=== PATIENT | female | born 1945 | race African-American/Black ===

== ENCOUNTER 2022-07-22 11:27 | Inpatient (IN) | payer MEDICARE, OTHER ==
[~2022-07-22] VITALS: Ht 162.6 cm; Wt 113.9 kg
[2022-07-22] MEDS ORDERED: IPRATROPIUM BROMIDE (0.02%) 0.5MG/2.5ML NEB HHN STA (11:38)
[2022-07-22] MEDS ORDERED: METHYLPREDNISOLONE SOD SUCC 125 MG/2 ML VIAL IV STA (11:38)
[2022-07-22] MEDS ORDERED: MAGNESIUM 2 G PREMIX 50 ML IV ONE (11:45)
[2022-07-22] MEDS: ALBUTEROL (0.083%) 2.5MG/3ML NEB HHN SCH ×3 (12:00→13:00)
[2022-07-22 12:39] LABS: BASOPHILS % 0.4 % (0.0-2.0); HEMATOCRIT. 46.8 % (36.0-48.0); HEMOGLOBIN. 15.4 g/dL (12.0-16.0); LYMPHOCYTES % 46.8 % (20.0-50.0); MEAN CORPUSCULAR VOLUME 94.1 fL (81.0-99.0); MEAN PLATELET VOLUME 9.1 fl (7.4-10.4); MONOCYTES % 7.3 % (2.0-8.0); NEUTROPHILS % 45.5 % (40.0-76.0); PLATELET 316 x1000/uL (130-400); RED BLOOD CELL COUNT 4.97 mill/uL (4.2-5.4); RED CELL DISTRIBUTION WIDTH 16.1 % (11.6-14.6)
[2022-07-22 12:48] LABS: INR 1.1; PROTHROMBIN TIME 11.9 sec (9.6-11.0)
[2022-07-22 12:50] LABS: CHLORIDE 97 mEq/L (98-107)
[2022-07-22] MEDS ORDERED: METHYLPREDNISOLONE SOD SUCC 125 MG/2 ML VIAL IV NR (13:15)
[2022-07-22] MEDS ORDERED: LEVOFLOXACIN 750MG PREMIX 150 ML IV NR (13:15)
[2022-07-22 14:39] LABS: BG BASE EXCESS 5.1 mmol/L (-2.0-2.0); BG CARBOXYHEMOGLOBIN 0.9 % (0.5-1.5); BG DEOXYHEMOGLOBIN 0.6 % (0.0-5.0); BG FRACTION INSPIRED OXYGEN 100; BG METHEMOGLOBIN 1.1 % (0.0-1.5); BG OXYGEN SATURATION 99.4 % (92.0-98.5); BG OXYHEMOGLOBIN 97.4 % (94.0-97.0); BG PCO2 123.9 mmHg (35.0-45.0); BG PH 7.127 (7.350-7.450); BG PO2 409.1 mmHg (75.0-100.0); BG SAMPLE SITE RIGHT RADIAL; BG TOTAL HEMOGLOBIN 16.6 g/dL (12.0-18.0); BG VENT MODE MASK - NRB
[2022-07-22] MEDS ORDERED: PROPOFOL 10MG/ML 100ML 100 ML IV ONE (15:00)
[2022-07-22] MEDS ORDERED: ACETAMINOPHEN 325MG TABLET PO PRN (15:15)
[2022-07-22] MEDS ORDERED: ONDANSETRON HCL 4MG/2ML INJ IV PRN (15:15)
[2022-07-22] MEDS ORDERED: NOREPINEPHRINE 8MG/250ML PMX 250 ML IV STA (15:36)
[2022-07-22] MEDS ORDERED: MIDAZOLAM HCL 100 MG in DEXT 5% WATER 80 ML IV ONE (15:45)
[2022-07-22] MEDS ORDERED: NOREPINEPHRINE 8 MG in DEXTROSE 5% WATER 250 ML IV SCH (16:00)
[2022-07-22] MEDS ORDERED: NOREPINEPHRINE 8MG/250ML PMX 250 ML IV SCH (16:00)
[2022-07-22 16:10] LABS: CLARITY URINE CLEAR (CLEAR); COLOR URINE DARK YELLOW (YELLOW); KETONES URINE TRACE (NEGATIVE); LEUKOCYTE ESTERASE URINE NEGATIVE (NEGATIVE); NITRITE URINE NEGATIVE (NEGATIVE); OCCULT BLOOD URINE 1+ (NEGATIVE); PH URINE 5.5 (4.5-8.0); PROTEIN URINE 3+ (NEGATIVE); SPECIFIC GRAVITY URINE 1.027 (1.005-1.030)
[2022-07-22 16:49] LABS: BG BASE EXCESS 0.8 mmol/L (-2.0-2.0); BG DEOXYHEMOGLOBIN 0.3 % (0.0-5.0); BG FRACTION INSPIRED OXYGEN 100; BG HCO3 ACT 31.8 mmol/L (22.0-26.0); BG METHEMOGLOBIN 0.9 % (0.0-1.5); BG OXYGEN SATURATION 99.7 % (92.0-98.5); BG OXYHEMOGLOBIN 97.8 % (94.0-97.0); BG PCO2 83.6 mmHg (35.0-45.0); BG PH 7.198 (7.350-7.450); BG PO2 395.2 mmHg (75.0-100.0); BG SAMPLE SITE LEFT BRACHIAL; BG TOTAL HEMOGLOBIN 15.1 g/dL (12.0-18.0); BG TOTAL RESPIRATORY RATE 18 b/min; BG VENT MODE VENT - AC
[2022-07-22] MEDS ORDERED: NOREPINEPHRINE 8 MG in DEXT 5% WATER 242 ML IV PRN (18:15)
[2022-07-22 21:29] LABS: BG BASE EXCESS 3.4 mmol/L (-2.0-2.0); BG CARBOXYHEMOGLOBIN 1.1 % (0.5-1.5); BG DEOXYHEMOGLOBIN 5.6 % (0.0-5.0); BG FRACTION INSPIRED OXYGEN 50; BG METHEMOGLOBIN 0.3 % (0.0-1.5); BG OXYGEN SATURATION 94.3 % (92.0-98.5); BG PCO2 47.7 mmHg (35.0-45.0); BG PH 7.402 (7.350-7.450); BG PO2 68.7 mmHg (75.0-100.0); BG SAMPLE SITE RIGHT BRACHIAL; BG TOTAL HEMOGLOBIN 15.2 g/dL (12.0-18.0); BG VENT MODE VENT - AC
[2022-07-22] MEDS ORDERED: MIDAZOLAM HCL 100 MG in SODIUM CHLORIDE 0.9% 100 ML IV PRN (21:30)
[2022-07-22] MEDS ORDERED: PROPOFOL 10MG/ML 100ML 100 ML IV PRN (21:30)
[2022-07-22] MEDS ORDERED: MIDAZOLAM 100MG/100ML PMX 100 ML IV PRN (21:30)
[2022-07-22] MEDS ORDERED: NOREPINEPHRINE 8MG/250ML PMX 250 ML IV ONE (21:30)
[2022-07-22] MEDS: METHYLPREDNISOLONE SOD SUCC 40 MG/ML VIAL IV SCH (21:58)
[2022-07-23] VITALS (54 sets, daily range): BP systolic 97–152; BP diastolic 53–79
[2022-07-23] MEDS ORDERED: NOREPINEPHRINE 8 MG in DEXTROSE 5% WATER 250 ML IV NR (00:15)
[2022-07-23] MEDS ORDERED: MIDAZOLAM 100MG/100ML PMX 100 ML IV PRN (02:30)
[2022-07-23] MEDS ORDERED: NOREPINEPHRINE 32 MG in DEXT 5% WATER 218 ML IV PRN (02:30)
[2022-07-23] MEDS ORDERED: PROPOFOL 10MG/ML 100ML 100 ML IV PRN (02:30)
[2022-07-23] MEDS ORDERED: PROPOFOL 10 MG/ML 100 ML IV PRN (02:45)
[2022-07-23] MEDS: MIDAZOLAM HCL 100 MG in SODIUM CHLORIDE 0.9% 100 ML IV PRN ×2 (03:03→20:27)
[2022-07-23] MEDS: METHYLPREDNISOLONE SOD SUCC 40 MG/ML VIAL IV SCH ×3 (05:56→21:26)
[2022-07-23 06:35] LABS: BASOPHILS % 0.1 % (0.0-2.0); HEMATOCRIT. 41.6 % (36.0-48.0); MEAN CORPUSCULAR HEMOGLOBIN 31.3 pg (28.0-32.0); MEAN CORPUSCULAR VOLUME 92.8 fL (81.0-99.0); MEAN PLATELET VOLUME 9.5 fl (7.4-10.4); MONOCYTES % 4.3 % (2.0-8.0); NEUTROPHILS % 67.6 % (40.0-76.0); PLATELET 288 x1000/uL (130-400); RED BLOOD CELL COUNT 4.49 mill/uL (4.2-5.4); RED CELL DISTRIBUTION WIDTH 15.5 % (11.6-14.6)
[2022-07-23 08:56] LABS: BG BASE EXCESS 2.6 mmol/L (-2.0-2.0); BG CARBOXYHEMOGLOBIN 0.1 % (0.5-1.5); BG DEOXYHEMOGLOBIN 3.3 % (0.0-5.0); BG FRACTION INSPIRED OXYGEN 50; BG HCO3 ACT 26.6 mmol/L (22.0-26.0); BG OXYGEN SATURATION 96.7 % (92.0-98.5); BG OXYHEMOGLOBIN 96.6 % (94.0-97.0); BG PCO2 38.9 mmHg (35.0-45.0); BG PH 7.452 (7.350-7.450); BG PO2 81.7 mmHg (75.0-100.0); BG SAMPLE SITE RIGHT RADIAL; BG TOTAL HEMOGLOBIN 15.2 g/dL (12.0-18.0); BG VENT MODE VENT - AC
[2022-07-23] MEDS: PANTOPRAZOLE SODIUM 40 MG/VIAL IV SCH (09:09)
[2022-07-23] MEDS ORDERED: ATEN50TA MT (12:34)
[2022-07-23] MEDS ORDERED: SERT20OR PO (12:34)
[2022-07-23] MEDS ORDERED: SERT-112 PO (12:34)
[2022-07-23] MEDS ORDERED: DILT360T13 PO (12:34)
[2022-07-23] MEDS ORDERED: ASPI-1497 PO (12:34)
[2022-07-23] MEDS ORDERED: ATOR20TA65 MT (12:34)
[2022-07-23] MEDS ORDERED: LEVO112T7 PO (12:34)
[2022-07-23] MEDS: SODIUM CHLORIDE 0.9% 1,000 ML IV SCH (13:00)
[2022-07-23] MEDS ORDERED: IPRATROPIUM/ALBUTEROL 0.5-3(2.5)MG/3ML NEB HHN PRN (13:30)
[2022-07-23] MEDS: ENOXAPARIN 40MG/0.4ML SYR SUBCUT SCH (13:52)
[2022-07-23] MEDS: IPRATROPIUM/ALBUTEROL 0.5-3(2.5)MG/3ML NEB NEB SCH ×2 (15:36→21:31)
[2022-07-23] MEDS ORDERED: DEXTROSE 50% WATER 50ML SYRINGE IV PRN (21:00)
[2022-07-23] MEDS: BLOOD SUGAR DIAGNOSTIC STRIP TEST SCH (23:19)
[2022-07-23] MEDS: INSULIN LISPRO 100 UNITS/ML SUBCUT SCH (23:28)
[2022-07-24] VITALS (50 sets, daily range): BP systolic 114–162; BP diastolic 47–102
[2022-07-24] MEDS: IPRATROPIUM/ALBUTEROL 0.5-3(2.5)MG/3ML NEB NEB SCH ×6 (00:33→20:18)
[2022-07-24] MEDS ORDERED: PROPOFOL 10MG/ML 100ML 100 ML IV PRN (05:30)
[2022-07-24 05:41] LABS: HEMATOCRIT. 43.2 % (36.0-48.0); HEMOGLOBIN. 14.2 g/dL (12.0-16.0); MEAN CORPUSCULAR HEMOGLOBIN 30.4 pg (28.0-32.0); MEAN CORPUSCULAR VOLUME 92.9 fL (81.0-99.0); MEAN PLATELET VOLUME 8.9 fl (7.4-10.4); PLATELET 308 x1000/uL (130-400); RED BLOOD CELL COUNT 4.65 mill/uL (4.2-5.4); RED CELL DISTRIBUTION WIDTH 15.5 % (11.6-14.6)
[2022-07-24] MEDS: BLOOD SUGAR DIAGNOSTIC STRIP TEST SCH ×4 (05:48→23:18)
[2022-07-24] MEDS: METHYLPREDNISOLONE SOD SUCC 40 MG/ML VIAL IV SCH ×3 (05:48→21:18)
[2022-07-24] MEDS: INSULIN LISPRO 100 UNITS/ML SUBCUT SCH ×4 (05:59→23:20)
[2022-07-24 08:54] LABS: BG BASE EXCESS 0.7 mmol/L (-2.0-2.0); BG CARBOXYHEMOGLOBIN 0.8 % (0.5-1.5); BG DEOXYHEMOGLOBIN 2.4 % (0.0-5.0); BG FRACTION INSPIRED OXYGEN 80; BG HCO3 ACT 26.9 mmol/L (22.0-26.0); BG METHEMOGLOBIN 0.4 % (0.0-1.5); BG OXYGEN SATURATION 97.6 % (92.0-98.5); BG OXYHEMOGLOBIN 96.4 % (94.0-97.0); BG PCO2 48.9 mmHg (35.0-45.0); BG PH 7.358 (7.350-7.450); BG PO2 106.4 mmHg (75.0-100.0); BG SAMPLE SITE RIGHT RADIAL; BG TOTAL HEMOGLOBIN 14.7 g/dL (12.0-18.0); BG VENT MODE VENT - AC
[2022-07-24] MEDS: SODIUM CHLORIDE 0.9% 1,000 ML IV SCH (09:33)
[2022-07-24] MEDS: PANTOPRAZOLE SODIUM 40 MG/VIAL IV SCH (10:32)
[2022-07-24] MEDS: DILTIAZEM HCL 90MG TABLET NG SCH ×3 (12:27→23:18)
[2022-07-24] MEDS: MIDAZOLAM HCL 100 MG in SODIUM CHLORIDE 0.9% 100 ML IV PRN ×2 (12:58→23:21)
[2022-07-24] MEDS ORDERED: LEVOFLOXACIN 750MG PREMIX 150 ML IV SCH ×2 (13:00)
[2022-07-24 13:20] LABS: PLATELET ESTIMATE NORMAL
[2022-07-24] MEDS: ENOXAPARIN 40MG/0.4ML SYR SUBCUT SCH (14:51)
[2022-07-24] MEDS: CHLORDIAZEPOXIDE 5 MG CAPSULE PO SCH ×2 (14:51→21:18)
[2022-07-25] VITALS (47 sets, daily range): BP systolic 107–160; BP diastolic 54–94
[2022-07-25] MEDS: IPRATROPIUM/ALBUTEROL 0.5-3(2.5)MG/3ML NEB NEB SCH ×6 (00:24→20:29)
[2022-07-25] MEDS: SODIUM CHLORIDE 0.9% 1,000 ML IV SCH ×2 (04:10→23:53)
[2022-07-25 05:25] LABS: HEMATOCRIT. 45.4 % (36.0-48.0); HEMOGLOBIN. 14.6 g/dL (12.0-16.0); MEAN CORPUSCULAR HEMOGLOBIN 29.9 pg (28.0-32.0); MEAN CORPUSCULAR VOLUME 92.8 fL (81.0-99.0); MEAN PLATELET VOLUME 8.9 fl (7.4-10.4); PLATELET 306 x1000/uL (130-400); RED CELL DISTRIBUTION WIDTH 16.1 % (11.6-14.6)
[2022-07-25] MEDS: BLOOD SUGAR DIAGNOSTIC STRIP TEST SCH ×4 (05:53→23:52)
[2022-07-25] MEDS: METHYLPREDNISOLONE SOD SUCC 40 MG/ML VIAL IV SCH ×3 (05:53→21:20)
[2022-07-25] MEDS: CHLORDIAZEPOXIDE 5 MG CAPSULE PO SCH ×3 (05:53→23:12)
[2022-07-25] MEDS: DILTIAZEM HCL 90MG TABLET NG SCH ×4 (05:53→23:55)
[2022-07-25] MEDS: INSULIN LISPRO 100 UNITS/ML SUBCUT SCH ×4 (05:54→23:02)
[2022-07-25 05:57] LABS: PHOSPHORUS 3.2 mg/dL (2.5-4.9)
[2022-07-25] MEDS: MIDAZOLAM HCL 100 MG in SODIUM CHLORIDE 0.9% 100 ML IV PRN ×2 (06:45→16:57)
[2022-07-25] MEDS: PANTOPRAZOLE SODIUM 40 MG/VIAL IV SCH (09:46)
[2022-07-25] MEDS ORDERED: INSULIN GLARGINE 100 UNITS/ML SUBCUT NR (11:00)
[2022-07-25] MEDS: FENTANYL 2500MCG/250ML PMX 250 ML IV PRN (12:41)
[2022-07-25 13:33] LABS: PLATELET ESTIMATE NORMAL
[2022-07-25] MEDS: PROPOFOL 10MG/ML 100ML 100 ML IV PRN ×2 (15:40→20:00)
[2022-07-25] MEDS: ENOXAPARIN 40MG/0.4ML SYR SUBCUT SCH (16:56)
[2022-07-25] MEDS: INSULIN GLARGINE 100 UNITS/ML SUBCUT SCH (23:00)
[2022-07-26] VITALS (55 sets, daily range): BP systolic 111–176; BP diastolic 37–93
[2022-07-26] MEDS: IPRATROPIUM/ALBUTEROL 0.5-3(2.5)MG/3ML NEB NEB SCH ×6 (00:15→20:32)
[2022-07-26] MEDS: MIDAZOLAM HCL 100 MG in SODIUM CHLORIDE 0.9% 100 ML IV PRN (03:01)
[2022-07-26] MEDS: DILTIAZEM HCL 90MG TABLET NG SCH ×3 (05:53→18:01)
[2022-07-26] MEDS: CHLORDIAZEPOXIDE 5 MG CAPSULE PO SCH ×3 (05:54→21:58)
[2022-07-26] MEDS: METHYLPREDNISOLONE SOD SUCC 40 MG/ML VIAL IV SCH ×3 (05:55→21:58)
[2022-07-26] MEDS: BLOOD SUGAR DIAGNOSTIC STRIP TEST SCH ×3 (06:00→17:57)
[2022-07-26] MEDS: FENTANYL 2500MCG/250ML PMX 250 ML IV PRN (06:10)
[2022-07-26 06:42] LABS: HEMATOCRIT. 42.7 % (36.0-48.0); HEMOGLOBIN. 14.2 g/dL (12.0-16.0); MEAN CORPUSCULAR HEMOGLOBIN 30.3 pg (28.0-32.0); MEAN CORPUSCULAR VOLUME 91.5 fL (81.0-99.0); MEAN PLATELET VOLUME 8.6 fl (7.4-10.4); PLATELET 277 x1000/uL (130-400); RED BLOOD CELL COUNT 4.67 mill/uL (4.2-5.4); RED CELL DISTRIBUTION WIDTH 15.5 % (11.6-14.6)
[2022-07-26 06:44] LABS: PHOSPHORUS 3.4 mg/dL (2.5-4.9)
[2022-07-26] MEDS: PANTOPRAZOLE SODIUM 40 MG/VIAL IV SCH (08:48)
[2022-07-26] MEDS: INSULIN LISPRO 100 UNITS/ML SUBCUT SCH ×3 (08:48→18:01)
[2022-07-26 10:18] LABS: PLATELET ESTIMATE NORMAL
[2022-07-26] MEDS: INSULIN GLARGINE 100 UNITS/ML SUBCUT SCH ×2 (11:32→21:59)
[2022-07-26 12:13] LABS: BG BASE EXCESS 1.2 mmol/L (-2.0-2.0); BG CARBOXYHEMOGLOBIN 0.1 % (0.5-1.5); BG DEOXYHEMOGLOBIN 8.8 % (0.0-5.0); BG FRACTION INSPIRED OXYGEN 40; BG METHEMOGLOBIN 0.2 % (0.0-1.5); BG OXYGEN SATURATION 91.2 % (92.0-98.5); BG OXYHEMOGLOBIN 90.9 % (94.0-97.0); BG PCO2 52.8 mmHg (35.0-45.0); BG PH 7.343 (7.350-7.450); BG PO2 64.2 mmHg (75.0-100.0); BG SAMPLE SITE LEFT RADIAL; BG TOTAL HEMOGLOBIN 15.9 g/dL (12.0-18.0); BG VENT MODE VENT - CPAP
[2022-07-26] MEDS ORDERED: LEVOFLOXACIN 500MG PREMIX 100 ML IV SCH (13:00)
[2022-07-26] MEDS: ENOXAPARIN 40MG/0.4ML SYR SUBCUT SCH (13:11)
[2022-07-26] MEDS: PROPOFOL 10MG/ML 100ML 100 ML IV PRN ×2 (13:55→21:22)
[2022-07-26] MEDS: SODIUM CHLORIDE 0.9% 1,000 ML IV SCH (20:46)
[2022-07-27] VITALS (48 sets, daily range): BP systolic 129–190; BP diastolic 44–122
[2022-07-27] MEDS: BLOOD SUGAR DIAGNOSTIC STRIP TEST SCH ×5 (00:11→23:54)
[2022-07-27] MEDS: INSULIN LISPRO 100 UNITS/ML SUBCUT SCH ×5 (00:12→23:59)
[2022-07-27] MEDS: IPRATROPIUM/ALBUTEROL 0.5-3(2.5)MG/3ML NEB NEB SCH ×6 (00:22→20:17)
[2022-07-27] MEDS: PROPOFOL 10MG/ML 100ML 100 ML IV PRN ×2 (00:47→04:40)
[2022-07-27 04:47] LABS: HEMATOCRIT. 43.9 % (36.0-48.0); HEMOGLOBIN. 14.1 g/dL (12.0-16.0); MEAN CORPUSCULAR HEMOGLOBIN 30.4 pg (28.0-32.0); MEAN CORPUSCULAR VOLUME 94.2 fL (81.0-99.0); MEAN PLATELET VOLUME 8.4 fl (7.4-10.4); PLATELET 264 x1000/uL (130-400); RED BLOOD CELL COUNT 4.66 mill/uL (4.2-5.4); RED CELL DISTRIBUTION WIDTH 16.1 % (11.6-14.6)
[2022-07-27 04:58] LABS: PHOSPHORUS 2.9 mg/dL (2.5-4.9)
[2022-07-27] MEDS: DILTIAZEM HCL 90MG TABLET NG SCH ×5 (05:29→23:54)
[2022-07-27] MEDS: METHYLPREDNISOLONE SOD SUCC 40 MG/ML VIAL IV SCH ×3 (05:29→22:13)
[2022-07-27] MEDS: CHLORDIAZEPOXIDE 5 MG CAPSULE PO SCH (05:29)
[2022-07-27 07:49] LABS: PLATELET ESTIMATE NORMAL
[2022-07-27] MEDS ORDERED: SODIUM CHLORIDE 3% FOR INH 4ML UD NEB INH SCH (09:00)
[2022-07-27] MEDS: PANTOPRAZOLE SODIUM 40 MG/VIAL IV SCH (10:02)
[2022-07-27] MEDS: INSULIN GLARGINE 100 UNITS/ML SUBCUT SCH ×2 (10:03→22:14)
[2022-07-27 10:25] LABS: BG BASE EXCESS 1.9 mmol/L (-2.0-2.0); BG CARBOXYHEMOGLOBIN 0.8 % (0.5-1.5); BG DEOXYHEMOGLOBIN 8.4 % (0.0-5.0); BG FRACTION INSPIRED OXYGEN 35; BG HCO3 ACT 26.6 mmol/L (22.0-26.0); BG METHEMOGLOBIN 0.3 % (0.0-1.5); BG OXYGEN SATURATION 91.5 % (92.0-98.5); BG OXYHEMOGLOBIN 90.5 % (94.0-97.0); BG PCO2 41.5 mmHg (35.0-45.0); BG PH 7.424 (7.350-7.450); BG PO2 60.7 mmHg (75.0-100.0); BG SAMPLE SITE LEFT RADIAL; BG TOTAL HEMOGLOBIN 15.9 g/dL (12.0-18.0); BG VENT MODE VENT - CPAP
[2022-07-27 11:03] LABS: BG BASE EXCESS 3.5 mmol/L (-2.0-2.0); BG CARBOXYHEMOGLOBIN 0.7 % (0.5-1.5); BG METHEMOGLOBIN 0.4 % (0.0-1.5); BG OXYHEMOGLOBIN 94.9 % (94.0-97.0); BG PCO2 46.9 mmHg (35.0-45.0); BG PH 7.409 (7.350-7.450); BG PO2 80.9 mmHg (75.0-100.0); BG SAMPLE SITE LEFT RADIAL; BG TOTAL HEMOGLOBIN 16.3 g/dL (12.0-18.0); BG VENT MODE MASK - NRB
[2022-07-27] MEDS ORDERED: HYDRALAZINE 20MG/ML VIAL IV PRN (11:30)
[2022-07-27] MEDS: SERTRALINE HCL 100MG TABLET PO SCH (12:43)
[2022-07-27] MEDS ORDERED: LEVOFLOXACIN 750MG PREMIX 150 ML IV SCH (14:00)
[2022-07-27] MEDS ORDERED: AMLODIPINE 10MG TABLET PO SCH (14:15)
[2022-07-27] MEDS: ENOXAPARIN 40MG/0.4ML SYR SUBCUT SCH (15:24)
[2022-07-27] MEDS ORDERED: CLONIDINE HCL 0.3MG/24HR PATCH TD SCH (15:30)
[2022-07-27] MEDS: ACETYLCYSTEINE 100MG/ML 10% VIAL 4ML INH SCH ×2 (16:14→22:00)
[2022-07-27] MEDS ORDERED: CLONIDINE 0.1MG TABLET PO PRN (18:15)
[2022-07-27] MEDS: SODIUM CHLORIDE 0.9% 1,000 ML IV SCH (18:51)
[2022-07-27] MEDS: HYDRALAZINE HCL 100MG TABLET PO SCH (22:13)
[2022-07-28] VITALS (40 sets, daily range): BP systolic 99–163; BP diastolic 12–101
[2022-07-28] MEDS: IPRATROPIUM/ALBUTEROL 0.5-3(2.5)MG/3ML NEB NEB SCH ×5 (00:30→16:50)
[2022-07-28] MEDS: METHYLPREDNISOLONE SOD SUCC 40 MG/ML VIAL IV SCH ×2 (05:35→13:28)
[2022-07-28] MEDS: DILTIAZEM HCL 90MG TABLET NG SCH ×3 (05:38→18:40)
[2022-07-28] MEDS: HYDRALAZINE HCL 100MG TABLET PO SCH ×2 (05:38→15:59)
[2022-07-28] MEDS: BLOOD SUGAR DIAGNOSTIC STRIP TEST SCH ×3 (05:39→18:41)
[2022-07-28] MEDS: INSULIN LISPRO 100 UNITS/ML SUBCUT SCH ×3 (05:45→18:00)
[2022-07-28 06:01] LABS: HEMATOCRIT. 45.7 % (36.0-48.0); HEMOGLOBIN. 15.1 g/dL (12.0-16.0); MEAN CORPUSCULAR HEMOGLOBIN 30.6 pg (28.0-32.0); MEAN CORPUSCULAR VOLUME 92.7 fL (81.0-99.0); MEAN PLATELET VOLUME 8.7 fl (7.4-10.4); PLATELET 253 x1000/uL (130-400); RED BLOOD CELL COUNT 4.93 mill/uL (4.2-5.4); RED CELL DISTRIBUTION WIDTH 15.8 % (11.6-14.6)
[2022-07-28 07:03] LABS: PHOSPHORUS 3.6 mg/dL (2.5-4.9)
[2022-07-28 07:59] LABS: PLATELET ESTIMATE NORMAL
[2022-07-28] MEDS ORDERED: RACEPINEPHRINE 2.25% 0.5ML NEB VIAL HHN NR (09:00)
[2022-07-28] MEDS: SERTRALINE HCL 100MG TABLET PO SCH (09:58)
[2022-07-28] MEDS: INSULIN GLARGINE 100 UNITS/ML SUBCUT SCH (13:13)
[2022-07-28] MEDS: PANTOPRAZOLE SODIUM 40 MG/VIAL IV SCH (13:14)
[2022-07-28 13:26] LABS: BG BASE EXCESS 3.5 mmol/L (-2.0-2.0); BG CARBOXYHEMOGLOBIN 0.8 % (0.5-1.5); BG FRACTION INSPIRED OXYGEN 21; BG HCO3 ACT 27.7 mmol/L (22.0-26.0); BG METHEMOGLOBIN 0.4 % (0.0-1.5); BG OXYGEN SATURATION 87.9 % (92.0-98.5); BG OXYHEMOGLOBIN 86.8 % (94.0-97.0); BG PCO2 40.4 mmHg (35.0-45.0); BG PH 7.454 (7.350-7.450); BG PO2 51.5 mmHg (75.0-100.0); BG SAMPLE SITE RIGHT RADIAL; BG TOTAL HEMOGLOBIN 15.5 g/dL (12.0-18.0); BG VENT MODE ROOM AIR
[2022-07-28] MEDS: ENOXAPARIN 40MG/0.4ML SYR SUBCUT SCH (13:45)
[2022-07-28] MEDS: SODIUM CHLORIDE 0.9% 1,000 ML IV SCH (15:47)
== END 2022-07-28 19:30 | disposition home or self-care (01) | DRG 870 ==
LOC: ER 11:27 → EDBEDREQ 13:39 → EDBEDREQSVC 13:39 → EDBEDREQ 13:40 → CVICU 14:38 → EDBEDREQ 14:41 → EDBEDREQSVC 14:41
PROVIDERS: ADMIT Internal Medicine; ATTEND Internal Medicine
PROC: 5A1955Z Respiratory Ventilation, Greater than 96 Consecutive Hours (ICD-10-PCS; principal; 2022-07-22)
PROC: 0BH17EZ Insertion of Endotracheal Airway into Trachea, Via Natural or Artificial Opening (ICD-10-PCS; 2022-07-22)
PROC: 05HY33Z Insertion of Infusion Device into Upper Vein, Percutaneous Approach (ICD-10-PCS; 2022-07-22)
PROC: B54MZZA Ultrasonography of Right Upper Extremity Veins, Guidance (ICD-10-PCS; 2022-07-22)
PROC: 02HV33Z Insertion of Infusion Device into Superior Vena Cava, Percutaneous Approach (ICD-10-PCS; 2022-07-25)
PROC: B548ZZA Ultrasonography of Superior Vena Cava, Guidance (ICD-10-PCS; 2022-07-25)
DX: A41.9 Sepsis, unspecified organism (principal); E43 Unspecified severe protein-calorie malnutrition; R65.21 Severe sepsis with septic shock; J96.01 Acute respiratory failure with hypoxia; J96.02 Acute respiratory failure with hypercapnia; N17.0 Acute kidney failure with tubular necrosis; I50.33 Acute on chronic diastolic (congestive) heart failure; I21.4 Non-ST elevation (NSTEMI) myocardial infarction; J18.9 Pneumonia, unspecified organism; E87.29 Other acidosis; E87.1 Hypo-osmolality and hyponatremia; G93.40 Encephalopathy, unspecified; Z68.41 Body mass index [BMI] 40.0-44.9, adult; E03.9 Hypothyroidism, unspecified; E87.70 Fluid overload, unspecified; J44.9 Chronic obstructive pulmonary disease, unspecified; I11.0 Hypertensive heart disease with heart failure; E78.5 Hyperlipidemia, unspecified; E11.65 Type 2 diabetes mellitus with hyperglycemia; I50.9 Heart failure, unspecified; I48.91 Unspecified atrial fibrillation; F17.210 Nicotine dependence, cigarettes, uncomplicated; Z20.822 Contact with and (suspected) exposure to COVID-19; Z88.0 Allergy status to penicillin; Z82.49 Family history of ischemic heart disease and other diseases of the circulatory system
CPT/HCPCS: 31500; 36415; 36573; 36600; 71045; 71250; 80048; 80053; 81003; 82375; 82550; 82805; 82962; 83036; 83605; 83735; 83880; 84100; 84145; 84443; 84478; 84484; 85025; 87070; 87077; 87426; 93306; 94002; 94003; 94640; 94644; 97162; 97530; 99291; C1725; C9113; C9803; J0360; J1650; J1815; J1956; J2250; J2704; J2920; J2930; J3010; J3475; J3490; J7030; J7050; J7060; A4315

== ENCOUNTER 2023-12-31 19:35 | Emergency (ER) | payer MEDICARE, OTHER ==
[~2023-12-31] VITALS: Ht 167.6 cm; Wt 82.0 kg
[~2023-12-31 19:35] MED LIST: ASPI-1497 PO; ATEN50TA MT; ATOR20TA65 MT; DILT360T13 PO; LEVO112T7 PO; SERT-112 PO; SERT20OR PO
[2023-12-31 20:01] VITALS: TEMP 97.8; O2SAT 95
[2023-12-31] MEDS ORDERED: HYDR-4001 MT (21:59)
[2023-12-31] MEDS ORDERED: IBUP-2030 MT (21:59)
[2023-12-31 22:32] VITALS: BP 131/62; PULSE 64; RESP 20
[2023-12-31] MEDS: HYDROCODONE/ACETAMINOPHEN 5/325MG TABLET PO ONE (22:32)
[2023-12-31] MEDS ORDERED: DICL100G58 TP (23:18)
== END 2024-01-01 02:05 | disposition home or self-care (01) ==
LOC: ER 19:35
DX: S42.301A Unspecified fracture of shaft of humerus, right arm, initial encounter for closed fracture (principal); E03.9 Hypothyroidism, unspecified; E11.9 Type 2 diabetes mellitus without complications; Z79.899 Other long term (current) drug therapy; W18.39XA Other fall on same level, initial encounter; Y93.89 Activity, other specified; Y92.89 Other specified places as the place of occurrence of the external cause; Y99.8 Other external cause status
CPT/HCPCS: 73030; 99283

== ENCOUNTER 2024-02-09 18:27 | Emergency (ER) | payer MEDICARE, OTHER ==
[~2024-02-09] VITALS: Ht 170.2 cm; Wt 86.0 kg
[~2024-02-09 18:27] MED LIST changes: +DICL100G58 TP; +HYDR-4001 MT; +IBUP-2030 MT
[2024-02-09] MEDS ORDERED: metformin (18:37)
[2024-02-09 18:38] VITALS: O2SAT 95
[2024-02-09 20:15] LABS: BASOPHILS % 1.2 % (0.0-2.0); EOSINOPHILS % 1.6 % (0.0-5.0); HEMATOCRIT. 39.4 % (36.0-48.0); HEMOGLOBIN. 13.1 g/dL (12.0-16.0); LYMPHOCYTES % 56.9 % (20.0-50.0); MEAN CORPUSCULAR HEMOGLOBIN 30.6 pg (28.0-32.0); MEAN CORPUSCULAR HGB CONC 33.2 g/dL (31.0-37.0); MEAN CORPUSCULAR VOLUME 92.1 fL (81.0-99.0); MONOCYTES % 5.3 % (2.0-8.0); PLATELET 271 x1000/uL (130-400); RED BLOOD CELL COUNT 4.27 mill/uL (4.2-5.4); RED CELL DISTRIBUTION WIDTH 15.7 % (11.6-14.6); WHITE BLOOD COUNT 9.6 x1000/uL (4.5-11.0)
[2024-02-09 20:23] LABS: CHLORIDE 103 mEq/L (98-107); POTASSIUM 3.4 mEq/L (3.5-5.1); SODIUM 139 mEq/L (136-145)
[2024-02-09 20:24] LABS: CARBON DIOXIDE 31 mEq/L (21-32)
[2024-02-09 20:25] LABS: CALCIUM 9.7 mg/dL (8.7-10.4)
[2024-02-09 20:29] LABS: CREATININE 1.3 mg/dL (0.6-1.0)
[2024-02-09 20:30] LABS: GLUCOSE 153 mg/dL (70-105); TROPONIN I HIGH SENSITIVITY 16 ng/L (3.0-34); UREA NITROGEN BLOOD 15 mg/dL (9-23)
[2024-02-09 22:51] VITALS: BP 153/86; PULSE 68; RESP 20; TEMP 36.66960; O2SAT 99
[2024-02-09] MEDS ORDERED: IOHEXOL-350 100 ML BOTTLE ONE (23:49)
== END 2024-02-09 23:56 | disposition left against medical advice (07) ==
LOC: ER 18:27
DX: R06.00 Dyspnea, unspecified (principal); E11.9 Type 2 diabetes mellitus without complications; I10 Essential (primary) hypertension; I25.2 Old myocardial infarction; E03.9 Hypothyroidism, unspecified; Z79.899 Other long term (current) drug therapy; Z88.2 Allergy status to sulfonamides
CPT/HCPCS: 99285; 71275; 71045; 80048; 83880; 85025; 84484; 36415; 93005; Q9967